=== PATIENT | male | born 1945 | race Caucasian/White ===

== ENCOUNTER 2018-02-19 15:35 | Inpatient (IN) ==
[2018-02-19 16:05] LABS: Bilirubin,Urine Negative (Negative); Blood,Urine Negative (Negative); Clarity,Urine Clear (Clear); Color,Urine Yellow (Yellow); Glucose,Urine (UA) Normal (Normal); Ketones,Urine Negative (Negative); Leukocyte Esterase,Urine Moderate (Negative); Nitrite,Urine Negative (Negative); Protein,Urine Negative (Neg-Trace); Specific Gravity,Urine 1.019 (1.010-1.025); Urobilinogen,Urine Normal (Normal)
[2018-02-19 16:13] LABS: Bacteria,Urine None Seen per hpf (None-Few); Hyaline Casts,Urine None Seen per lpf (None-Few); Squamous Epithelial Cell,Urine Moderate per lpf (None-Few)
[2018-02-19 16:36] LABS: Basophils % 0.5 %; Eosinophils # 0.6 K/mcL (0.0-0.6); Eosinophils % 6.9 %; Hematocrit 39.6 % (37.5-50.1); Hemoglobin 13.7 g/dL (12.9-16.9); Immature Granulocytes % 0.5 % (0-4); Lymphocytes # 1.7 K/mcL (0.6-4.6); Lymphocytes % 18.8 %; Mean Corpuscular HGB Conc 34.6 g/dL (31.6-35.5); Mean Corpuscular Hemoglobin 30.9 pg (28.0-33.3); Mean Corpuscular Volume 89.4 fL (83.0-100.0); Mean Platelet Volume 9.3 fL (9.4-12.4); Monocytes # 1.3 K/mcL (0.0-1.3); Monocytes % 14.9 %; Neutrophils # 5.2 K/mcL (1.6-8.9); Platelet Count 222 K/mcL (140-400); Red Blood Count 4.43 M/mcL (4.19-5.50); Segmented Neutrophils % 58.4 %
[2018-02-19 16:45] LABS: INR 1.1
[2018-02-19 16:47] LABS: Activated Partial Thrombo Time 32.9 Seconds (26.0-36.0)
[2018-02-19 16:56] LABS: Albumin 3.9 g/dL (3.5-5.7); Albumin/Globulin Ratio 1.3 (1.1-2.2); Bilirubin,Total 0.7 mg/dL (0.3-1.0); Calcium 9.4 mg/dL (8.6-10.3); Globulin 2.9 g/dL (2.4-3.5); Potassium 4.3 mEq/L (3.5-5.1); Total Protein 6.8 g/dL (6.4-8.9)
[2018-02-19] MEDS ORDERED: *HR* FentaNYL (PF) 100 MCG/2 ML VIAL IVP ONE (17:03)
[2018-02-19] MEDS ORDERED: 0.9 % Sodium Chloride 1,000 ML IVC ONE (17:04)
--- NOTE | 2018-02-19 17:08 | Emergency Department Note ---
Disposition Clinical Impression: Acute kidney injury Urolithiasis Qualifiers: Urinary calculus location: other lower urinary tract location Qualified Code(s) : N21.8 - Other lower urinary tract calculus Disposition: Admitted As Inpatient Condition: Fair Time of Disposition: 17:20 Abdominal Pain HPI - General Chief Complaint: ED Abdominal Pain Stated Complaint: Kidney stones Time Seen by Provider: 02/19/18 16:47 Source: patient, EMS Mode of arrival: EMS Limitations: no limitations Nursing Notes Reviewed: Yes Vital Signs Reviewed: Yes - History of Present Illness HPI Narrative: 72-year-old male with a history of ACS status post stent in the past on aspirin presents for evaluation of kidney stones. Patient was evaluated at the [facility] earlier today with a CT scan which showed kidney stones. Patient does have a history of kidney stones in the past which required intervention. Patient states has had a report of left sided pain. Patient did note pain radiating to his testicles. Patient notes some constipation with taking tramadol at home to help with his pain. Patient denies any nausea or vomiting. No fevers. No gross hematuria. No chest pain or shortness of breath. Pain Scale: 3 - Related Data Previous Rx's Medication Instructions Recorded Ciprofloxacin [Cipro] 500 mg PO BID 10 Days tablet 06/06/17 Allergies Allergy/AdvReac Type Severity Reaction Status Date / Time No Known Allergies Allergy Verified 02/19/18 15:51 All systems ED: reviewed and negative except as stated. Constitutional: Denies: fever Cardiovascular: Denies: chest pain Respiratory: Denies: cough, dyspnea Gastrointestinal: Reports: abdominal pain, constipation. Denies: nausea, vomiting Genitourinary: Denies: hematuria Abdominal Pain PMH - Past Medical History Medical history: Reports: cancer, coronary artery disease, DVT, hyperlipidemia, kidney stones, osteoporosis, peripheral artery disease Male Surgical History: Reports: cancer surgery, herniorrhaphy, orthopedic, other , ureteral stent Psychiatric history: Reports: depression, PTSD - Social History Smoking status: Former smoker Alcohol use: Reports: none Drug use: Reports: none Physical Exam - General Limitations: no limitations General appearance: alert, in no apparent distress - Head Head exam: atraumatic, normocephalic, normal inspection - Eye Eye exam: Present: normal appearance, PERRL, EOMI - ENT ENT exam: normal exam, normal oropharynx, mucous membranes moist - Neck Neck exam: Present: normal inspection - Chest Chest inspection: Present: normal inspection, symmetric chest wall rise - Respiratory Respiratory exam: Present: normal lung sounds bilaterally. Absent: respiratory distress - Cardiovascular Cardiovascular exam: Present: regular rate, normal rhythm. Absent: systolic murmur - Abdominal Exam Abdominal exam: Present: soft, Non-Tender. Absent: guarding, rebound - Extremities Exam Extremities exam: Present: normal inspection. Absent: pedal edema - Back Exam Back exam: Present: normal inspection. Absent: CVA tenderness (R), CVA tenderness (L) - Neurological Exam Neurological exam: Present: alert, oriented X3, CN II-XII intact - Skin Skin exam: Present: warm, dry, intact, normal color Course Course Narrative: Patient's records reviewed that showed a has a 10 mm obstructive calculus in the proximal left ureter. Patient also has multiple additional smaller stones more distally in the left ureter. Nonobstructive bilateral renal calculi. Patient also is a left lower lobe pulmonary nodule. Patient's lab work obtained prior to my evaluation. Does show the patient has any worsening kidney disease. Patient states that he wishes the stone was just removed. We will discuss the case with the on-call urologist. - Reevaluation(s) Reevaluation #1: Patient's resting comfortably. Time: 17:25 - Consultations Consultation #1: Discussed the case with urology, Dr. Benitez will evaluate the patient. Time: 17:17 Vital Signs Temperature 98.3 F 02/19/18 15:51 Pulse Rate 53 02/19/18 15:51 Respiratory Rate 20 02/19/18 15:51 Blood Pressure 151/82 02/19/18 15:51 O2 Sat by Pulse Oximetry 95 02/19/18 15:51 Temperature 98.3 F 02/19/18 15:51 Pulse Rate 53 02/19/18 15:51 Respiratory Rate 18 02/19/18 17:57 Blood Pressure 112/79 02/19/18 17:57 O2 Sat by Pulse Oximetry 95 02/19/18 15:51 Oxygen Delivery Oxygen Delivery Room Air Abdominal Pain - MDM Narrative Medical decision making narrative: Patient is a 72-year-old male with a history of renal stones in the past requiring intervention. Patient was sent in by the [facility] for urgent urologic referral. Patient states that he has been having left lower sided abdominal pain and tenderness for approximately week. Denies any nausea or vomiting. Patient states his pain is not entirely controlled and has been having issues with constipation. Patient denies any fevers. No vomiting. Patient states it he will recently completed a course of antibiotics. Patient CT report reviewed shows a 10 mm obstructive calculus in the proximal left ureter. Additional stones were noted distally. Patient also had a pulmonary nodule and was given this information as an incidental finding. Discussed the case with urology who will evaluate the patient in consult with the hospitalist. - Lab Data Lab results reviewed: Yes I reviewed the patient's lab results. Result diagrams: 02/19/18 16:16 02/19/18 16:16 Lab Results 02/19/18 02/19/18 02/19/18 Range/Units 15:55 16:16 16:16 WBC 8.8 (4.3-11.1) K/mcL RBC 4.43 (4.19-5.50) M/mcL Hgb 13.7 (12.9-16.9) g/dL Hct 39.6 (37.5-50.1) % MCV 89.4 (83.0-100.0) fL MCH 30.9 (28.0-33.3) pg MCHC 34.6 (31.6-35.5) g/dL RDW 12.0 (11.5-14.5) % Plt Count 222 (140-400) K/mcL MPV 9.3 L (9.4-12.4) fL Immature Gran % 0.5 (0-4) % Seg Neutrophils % 58.4 % Lymphocytes % 18.8 % Monocytes % 14.9 % Eosinophils % 6.9 % Basophils % 0.5 % Neutrophils # 5.2 (1.6-8.9) K/mcL Lymphocytes # 1.7 (0.6-4.6) K/mcL Monocytes # 1.3 (0.0-1.3) K/mcL Eosinophils # 0.6 (0.0-0.6) K/mcL Basophils # 0.0 (0.0-0.2) K/mcL PT 12.0 (9.4-12.1) Seconds INR 1.1 APTT 32.9 (26.0-36.0) Seconds Sodium (136-145) mEq/L Potassium (3.5-5.1) mEq/L Chloride (98-107) mEq/L Carbon Dioxide (23-29) mEq/L BUN (8-23) mg/dL Creatinine (0.70-1.30) mg/dL Est GFR ( Amer) (> 60) Est GFR (Non-Af Amer) (> 60) BUN/Creatinine Ratio (6-26) Glucose (70-105) mg/dL Calculated Osmolality (280-300) Calcium (8.6-10.3) mg/dL Total Bilirubin (0.3-1.0) mg/dL AST (13-39) Units/L ALT (7-52) Units/L Alkaline Phosphatase (34-104) Units/L Serum Total Protein (6.4-8.9) g/dL Albumin (3.5-5.7) g/dL Globulin (2.4-3.5) g/dL Albumin/Globulin Ratio (1.1-2.2) Urine Color Yellow (Yellow) Urine Clarity Clear (Clear) Urine pH 7.0 (5.0-8.0) pH Units Ur Specific [place] 1.019 (1.010-1.025) Urine Protein Negative (Neg-Trace) mg/dL Urine Glucose (UA) Normal (Normal) mg/dL Urine Ketones Negative (Negative) mg/dL Urine Blood Negative (Negative) Urine Nitrite Negative (Negative) Urine Bilirubin Negative (Negative) Urine Urobilinogen Normal (Normal) mg/dL Ur Leukocyte Esterase Moderate H (Negative) Urine Microscopic RBC 5-15 H (0-3) per hpf Urine Microscopic WBC 5-15 H (0-3) per hpf Ur Squamous Epith Cells Moderate H (None-Few) per lpf Urine Bacteria None Seen (None-Few) per hpf Hyaline Casts None Seen (None-Few) per lpf Ur Culture Indicated? YES A (NO) 02/19/18 Range/Units 16:16 WBC (4.3-11.1) K/mcL RBC (4.19-5.50) M/mcL Hgb (12.9-16.9) g/dL Hct (37.5-50.1) % MCV (83.0-100.0) fL MCH (28.0-33.3) pg MCHC (31.6-35.5) g/dL RDW (11.5-14.5) % Plt Count (140-400) K/mcL MPV (9.4-12.4) fL Immature Gran % (0-4) % Seg Neutrophils % % Lymphocytes % % Monocytes % % Eosinophils % % Basophils % % Neutrophils # (1.6-8.9) K/mcL Lymphocytes # (0.6-4.6) K/mcL Monocytes # (0.0-1.3) K/mcL Eosinophils # (0.0-0.6) K/mcL Basophils # (0.0-0.2) K/mcL PT (9.4-12.1) Seconds INR APTT (26.0-36.0) Seconds Sodium 137 (136-145) mEq/L Potassium 4.3 (3.5-5.1) mEq/L Chloride 99 (98-107) mEq/L Carbon Dioxide 33 H (23-29) mEq/L BUN 24 H (8-23) mg/dL Creatinine 1.57 H (0.70-1.30) mg/dL Est GFR ( Amer) 53 L (> 60) Est GFR (Non-Af Amer) 44 L (> 60) BUN/Creatinine Ratio 15 (6-26) Glucose 92 (70-105) mg/dL Calculated Osmolality 288 (280-300) Calcium 9.4 (8.6-10.3) mg/dL Total Bilirubin 0.7 (0.3-1.0) mg/dL AST 16 (13-39) Units/L ALT 17 (7-52) Units/L Alkaline Phosphatase 57 (34-104) Units/L Serum Total Protein 6.8 (6.4-8.9) g/dL Albumin 3.9 (3.5-5.7) g/dL Globulin 2.9 (2.4-3.5) g/dL Albumin/Globulin Ratio 1.3 (1.1-2.2) Urine Color (Yellow) Urine Clarity (Clear) Urine pH (5.0-8.0) pH Units Ur Specific [place] (1.010-1.025) Urine Protein (Neg-Trace) mg/dL Urine Glucose (UA) (Normal) mg/dL Urine Ketones (Negative) mg/dL Urine Blood (Negative) Urine Nitrite (Negative) Urine Bilirubin (Negative) Urine Urobilinogen (Normal) mg/dL Ur Leukocyte Esterase (Negative) Urine Microscopic RBC (0-3) per hpf Urine Microscopic WBC (0-3) per hpf Ur Squamous Epith Cells (None-Few) per lpf Urine Bacteria (None-Few) per hpf Hyaline Casts (None-Few) per lpf Ur Culture Indicated? (NO) - Radiology Data Radiology results reviewed: Yes I reviewed the patient's radiology results. - EKG Data EKG attestation: Yes I reviewed and interpreted this EKG. EKG shows normal: sinus rhythm Rate: bradycardia Rhythm: NSR [place]/QRS: normal T wave inversions noted in: aVR, v1 Interpretation: no acute changes, nonspecific ST-T wave changes S.B.AVictorino - Lin Situation: Demographics Background: Presenting Complaint Assessment: Vital Signs Recommendation: Barrier(s) to disposition, Recommendation based on pending studies, treatments, or consults S.B.A.Roxana Report Given to: Dr. Nicolas Ceballos Repor Time: 17:27
--- NOTE | 2018-02-19 18:04 | Emergency Department Note ---
Disposition Clinical Impression: Acute kidney injury Urolithiasis Qualifiers: Urinary calculus location: other lower urinary tract location Qualified Code(s) : N21.8 - Other lower urinary tract calculus Disposition: Admitted As Inpatient Condition: Fair General Adult HPI - General Chief complaint: ED Abdominal Pain Stated complaint: Kidney stones Time Seen by Provider: 02/19/18 16:47 Source: patient, EMS Mode of arrival: EMS Limitations: no limitations - History of Present Illness Pain Scale: 4 - Related Data Previous Rx's Medication Instructions Recorded Ciprofloxacin [Cipro] 500 mg PO BID 10 Days tablet 06/06/17 Allergies Allergy/AdvReac Type Severity Reaction Status Date / Time No Known Allergies Allergy Verified 02/19/18 15:51 Constitutional: Denies: fever Cardiovascular: Denies: chest pain Respiratory: Denies: cough, dyspnea Gastrointestinal: Reports: abdominal pain, constipation. Denies: nausea, vomiting Genitourinary: Denies: hematuria Past Medical History - Past Medical History Medical history: Reports: cancer, coronary artery disease, DVT, hyperlipidemia, kidney stones, osteoporosis, peripheral artery disease Psychiatric history: Reports: depression, PTSD - Social History Smoking Status: Former smoker Smokeless Tobacco Status: No Alcohol use: Reports: none Drug use: Reports: none Physical Exam - General Limitations: no limitations General appearance: alert, in no apparent distress Course Vital Signs Temperature 98.3 F 02/19/18 15:51 Pulse Rate 53 02/19/18 15:51 Respiratory Rate 20 02/19/18 15:51 Blood Pressure 151/82 02/19/18 15:51 O2 Sat by Pulse Oximetry 95 02/19/18 15:51 Temperature 98.3 F 02/19/18 15:51 Pulse Rate 53 02/19/18 15:51 Respiratory Rate 18 02/19/18 17:57 Blood Pressure 112/79 02/19/18 17:57 O2 Sat by Pulse Oximetry 95 02/19/18 15:51 Oxygen Delivery Oxygen Delivery Room Air Medical Decision Making - Lab Data Result diagrams: 02/19/18 16:16 02/19/18 16:16 Lab Results 02/19/18 02/19/18 02/19/18 Range/Units 15:55 16:16 16:16 WBC 8.8 (4.3-11.1) K/mcL RBC 4.43 (4.19-5.50) M/mcL Hgb 13.7 (12.9-16.9) g/dL Hct 39.6 (37.5-50.1) % MCV 89.4 (83.0-100.0) fL MCH 30.9 (28.0-33.3) pg MCHC 34.6 (31.6-35.5) g/dL RDW 12.0 (11.5-14.5) % Plt Count 222 (140-400) K/mcL MPV 9.3 L (9.4-12.4) fL Immature Gran % 0.5 (0-4) % Seg Neutrophils % 58.4 % Lymphocytes % 18.8 % Monocytes % 14.9 % Eosinophils % 6.9 % Basophils % 0.5 % Neutrophils # 5.2 (1.6-8.9) K/mcL Lymphocytes # 1.7 (0.6-4.6) K/mcL Monocytes # 1.3 (0.0-1.3) K/mcL Eosinophils # 0.6 (0.0-0.6) K/mcL Basophils # 0.0 (0.0-0.2) K/mcL PT 12.0 (9.4-12.1) Seconds INR 1.1 APTT 32.9 (26.0-36.0) Seconds Sodium (136-145) mEq/L Potassium (3.5-5.1) mEq/L Chloride (98-107) mEq/L Carbon Dioxide (23-29) mEq/L BUN (8-23) mg/dL Creatinine (0.70-1.30) mg/dL Est GFR ( Amer) (> 60) Est GFR (Non-Af Amer) (> 60) BUN/Creatinine Ratio (6-26) Glucose (70-105) mg/dL Calculated Osmolality (280-300) Calcium (8.6-10.3) mg/dL Total Bilirubin (0.3-1.0) mg/dL AST (13-39) Units/L ALT (7-52) Units/L Alkaline Phosphatase (34-104) Units/L Serum Total Protein (6.4-8.9) g/dL Albumin (3.5-5.7) g/dL Globulin (2.4-3.5) g/dL Albumin/Globulin Ratio (1.1-2.2) Urine Color Yellow (Yellow) Urine Clarity Clear (Clear) Urine pH 7.0 (5.0-8.0) pH Units Ur Specific [place] 1.019 (1.010-1.025) Urine Protein Negative (Neg-Trace) mg/dL Urine Glucose (UA) Normal (Normal) mg/dL Urine Ketones Negative (Negative) mg/dL Urine Blood Negative (Negative) Urine Nitrite Negative (Negative) Urine Bilirubin Negative (Negative) Urine Urobilinogen Normal (Normal) mg/dL Ur Leukocyte Esterase Moderate H (Negative) Urine Microscopic RBC 5-15 H (0-3) per hpf Urine Microscopic WBC 5-15 H (0-3) per hpf Ur Squamous Epith Cells Moderate H (None-Few) per lpf Urine Bacteria None Seen (None-Few) per hpf Hyaline Casts None Seen (None-Few) per lpf Ur Culture Indicated? YES A (NO) 02/19/18 Range/Units 16:16 WBC (4.3-11.1) K/mcL RBC (4.19-5.50) M/mcL Hgb (12.9-16.9) g/dL Hct (37.5-50.1) % MCV (83.0-100.0) fL MCH (28.0-33.3) pg MCHC (31.6-35.5) g/dL RDW (11.5-14.5) % Plt Count (140-400) K/mcL MPV (9.4-12.4) fL Immature Gran % (0-4) % Seg Neutrophils % % Lymphocytes % % Monocytes % % Eosinophils % % Basophils % % Neutrophils # (1.6-8.9) K/mcL Lymphocytes # (0.6-4.6) K/mcL Monocytes # (0.0-1.3) K/mcL Eosinophils # (0.0-0.6) K/mcL Basophils # (0.0-0.2) K/mcL PT (9.4-12.1) Seconds INR APTT (26.0-36.0) Seconds Sodium 137 (136-145) mEq/L Potassium 4.3 (3.5-5.1) mEq/L Chloride 99 (98-107) mEq/L Carbon Dioxide 33 H (23-29) mEq/L BUN 24 H (8-23) mg/dL Creatinine 1.57 H (0.70-1.30) mg/dL Est GFR ( Amer) 53 L (> 60) Est GFR (Non-Af Amer) 44 L (> 60) BUN/Creatinine Ratio 15 (6-26) Glucose 92 (70-105) mg/dL Calculated Osmolality 288 (280-300) Calcium 9.4 (8.6-10.3) mg/dL Total Bilirubin 0.7 (0.3-1.0) mg/dL AST 16 (13-39) Units/L ALT 17 (7-52) Units/L Alkaline Phosphatase 57 (34-104) Units/L Serum Total Protein 6.8 (6.4-8.9) g/dL Albumin 3.9 (3.5-5.7) g/dL Globulin 2.9 (2.4-3.5) g/dL Albumin/Globulin Ratio 1.3 (1.1-2.2) Urine Color (Yellow) Urine Clarity (Clear) Urine pH (5.0-8.0) pH Units Ur Specific [place] (1.010-1.025) Urine Protein (Neg-Trace) mg/dL Urine Glucose (UA) (Normal) mg/dL Urine Ketones (Negative) mg/dL Urine Blood (Negative) Urine Nitrite (Negative) Urine Bilirubin (Negative) Urine Urobilinogen (Normal) mg/dL Ur Leukocyte Esterase (Negative) Urine Microscopic RBC (0-3) per hpf Urine Microscopic WBC (0-3) per hpf Ur Squamous Epith Cells (None-Few) per lpf Urine Bacteria (None-Few) per hpf Hyaline Casts (None-Few) per lpf Ur Culture Indicated? (NO) Attestation Statement - Attestation Attestation: I examined this patient and my medical decision-making was reviewed with the Resident Physician. I agree with the documented findings, disposition and treatment plan as described except to the extent set forth below. Patient to the ED with a kidney stone. Transfer from the [facility] after he had a CT was had a 10 mm obstructing stone. On my examination he is comfortable after pain meds. Abdomen soft and well-appearing. Plan. Renal function is up a little from baseline. Discussed with urology and will admit to hospitalist.
[2018-02-19] MEDS ORDERED: Naloxone 0.4 MG/ML INJ IVP PRN (18:33)
[2018-02-19] MEDS ORDERED: traMADol 50 MG TABLET PO PRN (18:33)
--- NOTE | 2018-02-19 18:43 | Internal Med History&Physical ---
Date of Encounter: 02/19/18 Time of Encounter: 18:40 Internal Medicine - H&P: HPI Chief complaint: Left-sided flank pain History of present illness: Mr. Gracia is a 72 year old male with a history of CAD status post stent in 2013 on dual antiplatelet therapy, hypertension who presents with renal colic related to left-sided renal stone complicated by hydronephrosis and [place]OD[place]. Patient was seen in the [facility] 2 weeks ago with the onset of symptoms complaining of left-sided testicular pain initially that radiated upwards to the left flank. Weight 4-5 out of 10. Sharp in quality. At that time he was given tramadol when necessary for pain and was also given a ten-day course of oral antibiotics thought to be Cipro. He denies fevers or chills. Due to persistent symptoms that did not improve, he presented to the [facility] again today where a CT abdomen pelvis was performed demonstrating a left severe to moderate hydronephrosis associated with a 10 mm stone in the ureteral-pelvic junction with additional 2-3 mm stone in the lower pole of the left kidney. There was also a 3 mm non-obstructive right renal stone EKG personally reviewed with rate of 48, sinus bradycardia Past Med Surg Social Fam HX - Past Medical History Medical history: cancer, coronary artery disease, DVT, hyperlipidemia, kidney stones, osteoporosis, peripheral artery disease Psychiatric history: depression, PTSD - Past Surgical History Surgical History: angioplasty/stent (In 2013 stent placement) - Social History Smoking Status: Former smoker Smokeless Tobacco Status: No Alcohol use: none Drug use: none Internal Medicine - H&P: Meds 3 Allergy/AdvReac Type Severity Reaction Status Date / Time No Known Allergies Allergy Verified 02/19/18 15:51 All Systems PM: A 10-system review of systems was performed and is negative for pertinent findings except as documented above in the HPI. Review of systems: ROS 14 point review of systems reviewed as best as possible given presentation. Pertinent positive or negative as per HPI or otherwise reviewed as negative - Constitutional Vitals: Temp Pulse Resp BP Pulse Ox 98.3 F 53 18 112/79 95 02/19/18 15:51 02/19/18 15:51 02/19/18 17:57 02/19/18 17:57 02/19/18 15:51 Exam: General - AAO x 3 Psych - Appropriate affect/speech. No agitation Eyes - MEE. Eye lids intact. No scleral icterus Neuro - No gross peripheral or central neuro deficits on inspection Heart - Sinus. RRR. S1 and S2 present. No added HS/murmurs appreciated. No elevated JVD appreciated. Lung - Adequate air entry b/l, No crackles/wheezes appreciated GI - Soft, non-tender. No hepatosplenomegaly/ascites. BS+ - left-sided flank pain, radiating upwards and downwards. No suprapubic pain Skin - Intact. No rash/petechiae/ecchymosis. Warm extremities Internal Med - H&P Results - Labs CBC & Chem 7: 02/19/18 16:16 02/19/18 16:16 - Assessment and plan (1) Urolithiasis Current Visit: Yes Status: Acute Assessment and plan: Renal stone complicated by renal colic Discussed with ED for have reviewed the case with Dr. Benitez urology Nothing by mouth after midnight pending urology evaluation IV fluids, Flomax Tramadol, IV fentanyl when necessary for pain control IV Zofran for nausea control We sent a urinalysis but suspect that this could be partially treated given prior to antibiotics - no evidence of UTI sepsis at current Qualifiers: Urinary calculus location: kidney Qualified Code(s): N20.0 - Calculus of kidney (2) Acute kidney injury Current Visit: Yes Status: Acute Assessment and plan: Related to hydronephrosis and kidney stone. Will require definitive treatment for kidney stone Trend creatinine (3) CAD (coronary artery disease) Current Visit: Yes Status: Acute Assessment and plan: Status post stent in 2012 We will hold dual antiplatelet therapy pending urology evaluation for possible procedure Qualifiers: Coronary Disease-Associated Artery/Lesion type: [place] artery Associated angina: without angina Qualified Code(s): I25.10 - Atherosclerotic heart disease of [place] coronary artery without angina pectoris - Time Spent With Patient Total time spent is greater than 50% in coordination of care (as documented) at patient's floor/unit and/or counseling patient:
[2018-02-19] MEDS ORDERED: Ondansetron 4 MG/2 ML VIAL IVP PRN (18:50)
[2018-02-19] MEDS: 0.9 % Sodium Chloride 1,000 ML IVC SCH (20:30)
[2018-02-19] MEDS: *HR* FentaNYL (PF) 100 MCG/2 ML VIAL IVP PRN (22:00)
[2018-02-20 05:39] LABS: Basophils % 0.5 %; Eosinophils # 0.6 K/mcL (0.0-0.6); Eosinophils % 7.8 %; Hematocrit 38.6 % (37.5-50.1); Hemoglobin 13.3 g/dL (12.9-16.9); Immature Granulocytes % 0.4 % (0-4); Lymphocytes # 1.3 K/mcL (0.6-4.6); Lymphocytes % 16.4 %; Mean Corpuscular HGB Conc 34.5 g/dL (31.6-35.5); Mean Corpuscular Hemoglobin 31.1 pg (28.0-33.3); Mean Corpuscular Volume 90.2 fL (83.0-100.0); Mean Platelet Volume 9.3 fL (9.4-12.4); Monocytes % 12.9 %; Platelet Count 211 K/mcL (140-400); Red Blood Count 4.28 M/mcL (4.19-5.50)
[2018-02-20 05:59] LABS: BUN/Creatinine Ratio 17 (6-26); Blood Urea Nitrogen 22 mg/dL (8-23); Calcium 8.5 mg/dL (8.6-10.3); Carbon Dioxide 29 mEq/L (23-29); Chloride 104 mEq/L (98-107); Glucose 91 mg/dL (70-105); Osmolality,Calculated 289 (280-300); Potassium 4.5 mEq/L (3.5-5.1); Sodium 138 mEq/L (136-145); eGFR For African Americans > 60 (> 60); eGFR For Non-African Americans 57 (> 60)
[2018-02-20] MEDS: 0.9 % Sodium Chloride 1,000 ML IVC SCH (06:09)
[2018-02-20] MEDS: *HR* FentaNYL (PF) 100 MCG/2 ML VIAL IVP PRN (06:12)
--- NOTE | 2018-02-20 09:27 | Internal Med Progress Note ---
<Snehal Cerrato - Last Filed: 02/20/18 10:58> Date of Encounter: 02/20/18 Time of Encounter: 09:25 - Assessment and plan (1) Urolithiasis Current Visit: Yes Status: Acute Assessment and plan: 10mm Kidney stone in left ureteral pelvic junction with severe to moderate hydronephrosis. 2-3mm stone and lower pole of left kidney demonstrated by abdominal CT at the [place] then transferred to [facility]. He reported he had left testicular pain that started 2 weeks ago for which he went to [place] and they gave him ciprofloxacin for what they believed to be a UTI. The pain progressed and radiated across his abdomen to his left side of his back. His PCP ordered ultrasound which demonstrated kidney stones. He was told to go to [place] and had an abdominal CT that demonstrated the kidney stones and then was transferred to [facility]. Urinalysis demonstrated leukocyte esterase positive however patient denies dysuria. Will not start antibiotics due to unlikely UTI and he already received ciprofloxacin outpatient when the pain started 2 weeks ago. -Urology has already been consulted and is planning to take patient to OR today at 2 PM -IV fluids, Flomax -NPO -Toradol and IV fentanyl when necessary for pain control -IV Zofran for nausea control -urine culture pending Qualifiers: Urinary calculus location: kidney Qualified Code(s): N20.0 - Calculus of kidney (2) Acute kidney injury Current Visit: Yes Status: Acute Assessment and plan: Improving. Likely prerenal secondary hydronephrosis and kidney stone. Creatinine 1.26 (1.57) Urology taking patient to OR today for kidney stone extraction -Continue IVF -Trend creatinine (3) CAD (coronary artery disease) Current Visit: Yes Status: Acute Assessment and plan: History of known CAD with one stent in 2012 -continue home coreg, Lipitor, imdur, aspirin after the procedure in the OR Qualifiers: Coronary Disease-Associated Artery/Lesion type: andreafski artery Associated angina: without angina Qualified Code(s): I25.10 - Atherosclerotic heart disease of andreafski coronary artery without angina pectoris (4) DVT prophylaxis Current Visit: Yes Status: Acute Assessment and plan: EPCD - Time Spent With Patient Total time spent is greater than 50% in coordination of care (as documented) at patient's floor/unit and/or counseling patient: - Subjective Interval history: 72M PMH CAD with stent, skin cancer, DVT, history of kidney stones, HLD [facility] in left UPJ demonstrated by abdominal CT. Upon my examination he is alert and oriented times 3 and no acute distress. He reports he does have mild to moderate pain on his left side. He denies fever, chills, nausea, vomiting. He was told by urology that he would be going to OR around 2 PM today. - Constitutional Vitals: Temp Pulse Resp BP Pulse Ox 98.8 F 54 16 145/61 93 02/20/18 07:20 02/20/18 07:20 02/20/18 07:20 02/20/18 07:20 02/20/18 07:20 Exam: Gen.: Vitals noted. No acute distress. AAOx3 HEENT: oropharynx clear, Normocephalic, atraumatic Cardiac: RRR, no murmur, +S1/S2 Pulmonary: CTA bilaterally, no wheezes, rales or rhonchi, equal chest expansion Abdomen: soft, left lower quadrant tender, Bowel sounds noted, no guarding Back: left CVA tenderness MSK: ROM intact, no joint swelling noted Extremities: no BLE edema, nontender calf, no cyanosis or clubbing Neuro: A&Ox3, moves all extremities, no focal deficits Psych: Appropriate mood and behavior Internal Medicine: Result - Labs CBC & Chem 7: 02/20/18 04:55 02/20/18 04:55 Labs: Short CBC 02/20/18 Range/Units 04:55 WBC 8.0 (4.3-11.1) K/mcL Hgb 13.3 (12.9-16.9) g/dL Hct 38.6 (37.5-50.1) % Plt Count 211 (140-400) K/mcL Neutrophils # 5.0 (1.6-8.9) K/mcL BMP 02/20/18 04:55 Sodium 138 Potassium 4.5 Chloride 104 Carbon Dioxide 29 BUN 22 Creatinine 1.26 Glucose 91 Calcium 8.5 L - ABG Interpretation ABG results: PT/INR, D-dimer PT 12.0 Seconds (9.4-12.1) 02/19/18 16:16 - VTE Documentation of Mechanical Device: Intermittent pneumatic compression device Consult Discharge Plan - Plan Additional Instructions: Please follow-up with your primary care physician at the [place] as well as Dr. Benitez for continued management of your kidney stone. Be sure to drink plenty of fluids and take all medications as prescribed. Referrals: Anatoly Benitez MD [Partnered Physician] - <Tenzin Costa Betsy - Last Filed: 02/20/18 17:54> Date of Encounter: 02/20/18 - Assessment and plan (1) Urolithiasis Current Visit: Yes Status: Acute Qualifiers: Urinary calculus location: kidney Qualified Code(s): N20.0 - Calculus of kidney (2) Acute kidney injury Current Visit: Yes Status: Acute (3) CAD (coronary artery disease) Current Visit: Yes Status: Chronic Qualifiers: Coronary Disease-Associated Artery/Lesion type: andreafski artery Associated angina: without angina Qualified Code(s): I25.10 - Atherosclerotic heart disease of andreafski coronary artery without angina pectoris (4) DVT prophylaxis Current Visit: Yes Status: Acute - Time Spent With Patient Total time spent is greater than 50% in coordination of care (as documented) at patient's floor/unit and/or counseling patient: - Constitutional Vitals: Temp Pulse Resp BP Pulse Ox 98.3 F 52 16 125/61 95 02/20/18 17:42 02/20/18 17:42 02/20/18 17:42 02/20/18 17:42 02/20/18 17:42 Internal Medicine: Result - Labs CBC & Chem 7: 02/20/18 04:55 02/20/18 04:55 Labs: Short CBC 02/20/18 Range/Units 04:55 WBC 8.0 (4.3-11.1) K/mcL Hgb 13.3 (12.9-16.9) g/dL Hct 38.6 (37.5-50.1) % Plt Count 211 (140-400) K/mcL Neutrophils # 5.0 (1.6-8.9) K/mcL BMP 02/20/18 04:55 Sodium 138 Potassium 4.5 Chloride 104 Carbon Dioxide 29 BUN 22 Creatinine 1.26 Glucose 91 Calcium 8.5 L - ABG Interpretation ABG results: PT/INR, D-dimer PT 12.0 Seconds (9.4-12.1) 02/19/18 16:16 - Impressions Impressions Fluoroscopy 02/20/18 00:00 IMPRESSION: Intraprocedural fluoroscopic spot images as above. See separate procedure report for more information. D/ / Robert Sierra MD / Robert Sierra MD Interpreting Provider: Robert Sierra MD X-Ray 02/20/18 00:00 IMPRESSION: Intraprocedural fluoroscopic spot images as above. See separate procedure report for more information. D/ / Robert Sierra MD / Robert Sierra MD Interpreting Provider: Robert Sierra MD - Attending Attestation Please see discharge summary of this date.
--- NOTE | 2018-02-20 09:34 | Urology - Consult Note ---
Date of Encounter: 02/20/18 Time of Encounter: 09:28 - Assessment and Plan (1) Left ureteral calculus Current Visit: Yes Status: Acute Assessment and plan: Patient has a large volume of stones within his left ureter. Plan on left ureteroscopic stone extraction today in the operating room. All risks benefits and alternatives were discussed with the patient and and they voiced understanding. Urology CN:HPI Consult date: 02/20/18 Reason for consult Urology: Other (left ureteral stones) Requesting physician: Walker Mariscal History of present illness: Robert is a 72-year-old male with a history of kidney stones. Patient presented to the emergency Department secondary to left-sided flank pain after undergoing a CT scan at the [facility]. The CT scan revealed multiple left ureteral stones with largest at the proximal left UPJ. Patient's pain is currently controlled. No nausea or vomiting. No fevers. He did have a slightly elevated serum creatinine upon admission to the hospital. Past Med Surg Social Fam HX - Past Medical History Medical history: cancer, coronary artery disease, DVT, hyperlipidemia, kidney stones, osteoporosis, peripheral artery disease Psychiatric history: depression, PTSD - Past Surgical History Surgical History: angioplasty/stent (In 2013 stent placement) - Social History Smoking Status: Former smoker Smokeless Tobacco Status: No Alcohol use: none Drug use: none Medications and Allergies Albuterol Sulfate [Albuterol Inhaler] 2 puff IH Q4H PRN 02/19/18 [History] Ascorbic Acid [Vitamin C with Keyona Hips] 500 mg PO DAILY 02/19/18 [History] Aspirin [Lo-Dose Aspirin EC] 81 mg PO DAILY 02/19/18 [History] Atorvastatin [Lipitor] 40 mg PO HS 02/19/18 [History] BuPROPion SR (12 HR) [Wellbutrin SR] 150 mg PO DAILY 02/19/18 [History] Carvedilol 3.125 mg PO BID 02/19/18 [History] Gabapentin [Neurontin] 600 mg PO TID 02/19/18 [History] Gluc 2Kcl/Chondr/Santy Hy/Hy AC [Glucosamine & Chondroitin Cap] 1 cap PO DAILY [History] Isosorbide MONOnitrate (24 HR) [Imdur] 30 mg PO DAILY 02/19/18 [History] Sertraline [Zoloft] 200 mg PO DAILY 02/19/18 [History] Tamsulosin [Flomax] 0.4 mg PO DAILY 02/19/18 [History] Tramadol HCl [Ultram] 50 mg PO TID PRN 02/19/18 [History] hydroCHLOROthiazide [Hydrochlorothiazide] 25 mg PO DAILY 02/19/18 [History] 3 Allergy/AdvReac Type Severity Reaction Status Date / Time No Known Allergies Allergy Verified 02/19/18 15:51 Review of Systems - Constitutional no chills, no fever(s) - EENT Nose, mouth and throat: no dizziness - Cardiovascular no dyspnea - Respiratory no cough - Gastrointestinal no abdominal pain - Musculoskeletal back pain - Integumentary no erythema Exam Initial Vital Signs Temp Pulse Resp BP Pulse Ox 98.3 F 53 20 151/82 95 02/19/18 15:51 02/19/18 15:51 02/19/18 15:51 02/19/18 15:51 02/19/18 15:51 General/Neuological: alert and oriented x 3 Eyes: normal pupils, non-icteric Neck: no lymphadenopathy noted, supple to touch Cardiovascular: RRR, no murmurs Respiratory: normal respiratory effort, clear bilaterally ABD: soft, nontender, no masses palpated, good bowel sounds Back: no pain on percussion bilaterally : normal phallus, normal scrotum, testicles and epididymides normal, urethral meatus normal. Rectal: smooth prostate, no nodules Skin: no rashes noted Musculoskeletal: normal gait, FROMx4 Urology Results - Labs 02/20/18 04:55 02/20/18 04:55 Abnormal lab results MPV 9.3 fL (9.4-12.4) L 02/20/18 04:55 Est GFR (Non-Af Amer) 57 (> 60) L 02/20/18 04:55 Calcium 8.5 mg/dL (8.6-10.3) L 02/20/18 04:55 Ur Leukocyte Esterase Moderate (Negative) H 02/19/18 15:55 Urine Microscopic RBC 5-15 per hpf (0-3) H 02/19/18 15:55 Urine Microscopic WBC 5-15 per hpf (0-3) H 02/19/18 15:55 Ur Squamous Epith Cells Moderate per lpf (None-Few) H 02/19/18 15:55 Ur Culture Indicated? YES (NO) A 02/19/18 15:55 Diabetes panel 02/20/18 Range/Units 04:55 Sodium 138 (136-145) mEq/L Potassium 4.5 (3.5-5.1) mEq/L Chloride 104 (98-107) mEq/L Carbon Dioxide 29 (23-29) mEq/L BUN 22 (8-23) mg/dL Creatinine 1.26 (0.70-1.30) mg/dL Glucose 91 (70-105) mg/dL Calcium 8.5 L (8.6-10.3) mg/dL Calcium panel 02/20/18 Range/Units 04:55 Calcium 8.5 L (8.6-10.3) mg/dL Pituitary panel 02/20/18 Range/Units 04:55 Sodium 138 (136-145) mEq/L Potassium 4.5 (3.5-5.1) mEq/L Chloride 104 (98-107) mEq/L Carbon Dioxide 29 (23-29) mEq/L BUN 22 (8-23) mg/dL Creatinine 1.26 (0.70-1.30) mg/dL Glucose 91 (70-105) mg/dL Calcium 8.5 L (8.6-10.3) mg/dL Adrenal panel 02/20/18 Range/Units 04:55 Sodium 138 (136-145) mEq/L Potassium 4.5 (3.5-5.1) mEq/L Chloride 104 (98-107) mEq/L Carbon Dioxide 29 (23-29) mEq/L BUN 22 (8-23) mg/dL Creatinine 1.26 (0.70-1.30) mg/dL Glucose 91 (70-105) mg/dL Calcium 8.5 L (8.6-10.3) mg/dL All other labs normal. - Imaging CT scan - abdomen: image reviewed CT scan - pelvis: image reviewed Consult Discharge Plan - Plan Referrals: Anatoly Benitez MD [Partnered Physician] -
--- NOTE | 2018-02-20 12:28 | Electrocardiograph Report ---
[address] [address] Test Date: 2018-02-19 Pat Name: Robert Gracia Department: 103 Room: 3A Gender: M Records Administrator: AJAY : 1945 Requested By: Walker Mariscal Order Number: [id number] Reading MD: Amilcar Slade Measurements Intervals [place] Rate: 48 P: -4 WV: 192 QRS: 45 QRSD: 109 T: 63 QT: 423 QTc: 391 Interpretive Statements SINUS BRADYCARDIA Electronically Signed On 02-20-2018 12:26:40 EDT by Amilcar Slade
[2018-02-20] MEDS ORDERED: *HR* Midazolam HCl 2 MG/2 ML VIAL ONE (13:40)
[2018-02-20] MEDS ORDERED: *HR* FentaNYL (PF) 100 MCG/2 ML VIAL ONE (13:40)
[2018-02-20] MEDS ORDERED: *HR* Propofol 200 MG/20 ML VIAL IVP ONE (13:40)
--- NOTE | 2018-02-20 13:42 | Anesthesia Evaluation PreOp ---
Date of Encounter: 02/20/18 Time of Encounter: 13:49 - Past History Planned Operation: Left USE Cardiac History: HTN, Cardiac Stent (2012), Other (Good excercise tolerance) REED FIXER History: Other (Depression, PTSD) Other Medical History: Renal (CRI) Anesthesia History: No Prior Anesthetic Complications, Past Anesthesia Alcohol Use: none Drug use: none Medications and Allergies Albuterol Sulfate [Albuterol Inhaler] 2 puff IH Q4H PRN 02/19/18 [History] Ascorbic Acid [Vitamin C with Keyona Hips] 500 mg PO DAILY 02/19/18 [History] Aspirin [Lo-Dose Aspirin EC] 81 mg PO DAILY 02/19/18 [History] Atorvastatin [Lipitor] 40 mg PO HS 02/19/18 [History] BuPROPion SR (12 HR) [Wellbutrin SR] 150 mg PO DAILY 02/19/18 [History] Carvedilol 3.125 mg PO BID 02/19/18 [History] Gabapentin [Neurontin] 600 mg PO TID 02/19/18 [History] Gluc 2Kcl/Chondr/Santy Hy/Hy AC [Glucosamine & Chondroitin Cap] 1 cap PO DAILY [History] Isosorbide MONOnitrate (24 HR) [Imdur] 30 mg PO DAILY 02/19/18 [History] Sertraline [Zoloft] 200 mg PO DAILY 02/19/18 [History] Tamsulosin [Flomax] 0.4 mg PO DAILY 02/19/18 [History] Tramadol HCl [Ultram] 50 mg PO TID PRN 02/19/18 [History] hydroCHLOROthiazide [Hydrochlorothiazide] 25 mg PO DAILY 02/19/18 [History] 3 Allergy/AdvReac Type Severity Reaction Status Date / Time No Known Allergies Allergy Verified 02/19/18 15:51 - Meds/Allergy Pre-op Review Medications Reviewed: Yes Allergies Reviewed: Yes Beta Blockers on Current Med List: Yes If Beta Blockers taken, Date/Time (Last Dose taken): 1252 Anesthesia Results - Labs 02/20/18 04:55 02/20/18 04:55 - Imaging EKG: report reviewed (SINUS BRADYCARDIA) Anesthesia Exam O2 Sat Height 1.78 m Weight 118.5 kg Weight 118.478 kg O2 Sat by Pulse Oximetry 93 O2 Sat by Pulse Oximetry 93 O2 Sat by Pulse Oximetry 94 O2 Sat by Pulse Oximetry 94 O2 Sat by Pulse Oximetry 97 O2 Sat by Pulse Oximetry 97 O2 Sat by Pulse Oximetry 95 Vital Signs/O2 Sat/Glucose, Most Recent Temp Pulse Resp BP Pulse Ox 98.4 F 51 16 157/74 93 02/20/18 11:13 02/20/18 11:13 02/20/18 11:13 02/20/18 11:13 02/20/18 11:13 Blood Glucose* 91 - HEENT Mallampati: I Teeth: Missing Oral Opening: Greater than 3 - REED FIXER LOC: Oriented - Cardiac Rhythm: Regular - Pulmonary Breath Sounds: bilateral Clear Anesthesia Assess/Plan ASA Score: 2 Modified Basilio Scale for Level of Consciousness: Cooperative, oriented, and tranquil Anesthetic Plan: General Monitoring Plan: Standard Monitors Recovery Plan: PACU Anes Supervising Prov Stmt: Patient informed and consented. Risks, benefits, and alternatives discussed. Patient wishes to proceed.
[2018-02-20] MEDS ORDERED: *HR* OxyCODONE Immed Rel 5 MG TABLET PO PRN (13:45)
[2018-02-20] MEDS ORDERED: *HR* FentaNYL (PF) 100 MCG/2 ML VIAL IVP PRN ×2 (13:45→15:29)
--- NOTE | 2018-02-20 14:41 | Operative Note ---
Date of procedure: 02/20/18 Pre-op diagnosis: left ureteral stones Post-op diagnosis: same Procedure: Left ureteroscopic laser lithotripsy of stone, left ureteroscopic basket retrieval stone fragment, left 6 x 26 cm ureteral stent placement Anesthesia: GETA Surgeon: Anatoly Benitez Was there an export sales assistant present: No Estimated blood loss (cc): 0 Specimen: Left ureteral stone Condition: stable Disposition: PACU Procedure in Detail: All risks benefits and alternatives were discussed with the patient in holding area. The consent was reviewed. Patient understood and was willing to proceed with the scheduled procedure. Patient was prepped and draped in normal sterile fashion. Timeout procedure performed. I then inserted the semirigid ureteroscope into the patient's urethra and advanced into the bladder. I cannulated the left ureteral orifice and encountered a distal 3-4 mm stone. I then used a basket device to remove the stone in its entirety. I then placed the scope back into the left ureter and up to where I encountered 2 separate mid ureteral stones. I used the holmium laser to fragment the stones. All stone fragments were then removed using a nitinol basket. At this point I then encountered a larger left UPJ stone but was unable to advance the scope beyond the narrow area just distal to the stone. I then proceeded to place a sensor wire into the left kidney and placed a 6 x 26 cm stent with good curl seen in the left kidney and in the bladder. The bladder was drained and the procedure was ended. Patient okay to discharge from urology standpoint. I will schedule the patient a return to the operating room in 2-3 weeks for left ureteroscopic stone extraction.
[2018-02-20] MEDS ORDERED: Ketorolac 30 MG/ML VIAL ONE (14:42)
[2018-02-20] MEDS ORDERED: Dexamethasone 4 MG/ML VIAL ONE (14:42)
[2018-02-20] MEDS ORDERED: Ondansetron 4 MG/2 ML VIAL ONE (14:42)
--- NOTE | 2018-02-20 15:09 | Anesthesia Evaluation Post Op ---
Date of Encounter: 02/20/18 Time of Encounter: 15:08 - Vital Signs Vital Signs: Vital Signs/O2 Sat, Most Current Temp Pulse Resp BP Pulse Ox 97.8 F 57 14 148/80 99 02/20/18 14:44 02/20/18 15:04 02/20/18 15:04 02/20/18 15:04 02/20/18 15:04 - Lungs Lungs: Clear Ascult./Percussion - Airway Airway: Non-obstructed - Cardiovascular Regular Rate - Mental Status Mental Status: Alert & Oriented, Answers Appropriately - Pain Pain Scale: 0 Pain Scale used: Numeric (1 - 10) - Nausea Vomiting Nausea Vomiting: Not Present - Hydration Hydration: Ice chips, Palmer catheter - Discharge PostOp Status: Transfer Patient to floor
[2018-02-20] MEDS ORDERED: traMADol 50 MG TABLET PO PRN (15:29)
[2018-02-20] MEDS ORDERED: Ondansetron 4 MG/2 ML VIAL IVP PRN (15:29)
[2018-02-20] MEDS ORDERED: Naloxone 0.4 MG/ML INJ IVP PRN (15:29)
--- NOTE | 2018-02-20 17:16 | Discharge Summary ---
<Ranjeet Baldwin - Last Filed: 02/20/18 17:14> - NOTES TO OUTPATIENT PROVIDER Notes to Outpatient Provider: Patient presented with left-sided kidney stone and extraction was attempted however was unable to be extracted. Lithotripsy performed. Has an outpatient follow-up with urology in 2-3 weeks for removal of remainder of stone. Date of Encounter: 02/20/18 Time of Encounter: 17:14 - Discharge Diagnosis (1) Urolithiasis Priority: Primary Status: Acute Assessment and Plan: 10mm Kidney stone in left ureteral pelvic junction with severe to moderate hydronephrosis. 2-3mm stone and lower pole of left kidney demonstrated by abdominal CT at the [facility] then transferred to [facility]. Status post laser lithotripsy, ureteroscopic basket retrieval, ureteral stent placement Qualifiers: Urinary calculus location: kidney Qualified Code(s): N20.0 - Calculus of kidney (2) Acute kidney injury Priority: Secondary Status: Acute Assessment and Plan: Improving. (3) CAD (coronary artery disease) Priority: Secondary Status: Chronic Qualifiers: Coronary Disease-Associated Artery/Lesion type: upper [place] artery Associated angina: without angina Qualified Code(s): I25.10 - Atherosclerotic heart disease of [place] coronary artery without angina pectoris (4) DVT prophylaxis Priority: Secondary Status: Acute Hospital course: Mr. Gracia is a 72 year old male presented to the emergency department for evaluation of kidney stones. He states that he was evaluated at the [facility] earlier on day of arrival and had a CT scan which showed kidney stones. He has had this in the past which have required intervention. He did also complain of pain radiating to his testicles. He has been taking tramadol with relief of his pain. Vital signs on presentation significant for mild bradycardia at 53, respiratory rate 20, BP 151/82. Labs were significant for a mild acute kidney injury with a creatinine of 1.57. He was admitted to medicine service with urology consults for further evaluation and management of a left-sided kidney stone measuring [address] scan. During course hospital stay, patient's pain did gradually improved. He did undergo a left-sided ureteroscopic laser lithotripsy, left ureteroscopic basket retrieval of stone fragment, left ureteral stent placement by urology. He did have one 3-4 mm stone extracted however there was an additional 10 mm stone in the UPJ which was unable to be extracted due to size. At which point a sensor wire was advanced and a ureteral stent was placed. He was advised to follow up with urology in 2-3 weeks for left uteroscopic stone extraction. He will be discharged home in stable condition with resolution of his symptoms with Flomax , his home tramadol dosage. We did discuss the option of discharging today or tomorrow and patient stated that he was work on full leaving tonight with close follow-up. All questions were answered. He was instructed to return to emergency department with any worsening of symptoms and to drink plenty of fluids. He is medically stable for discharge at this time. Discharge discussed with: patient, family - Time Spent with Patient Total time spent providing and/or coordinating discharge services: - Discharge Medications Home Medications: Albuterol Sulfate [Albuterol Inhaler] 2 puff IH Q4H PRN 02/19/18 [History] Ascorbic Acid [Vitamin C with [place] Hips] 500 mg PO DAILY 02/19/18 [History] Aspirin [Lo-Dose Aspirin EC] 81 mg PO DAILY 02/19/18 [History] Atorvastatin [Lipitor] 40 mg PO HS 02/19/18 [History] BuPROPion SR (12 HR) [Wellbutrin SR] 150 mg PO DAILY 02/19/18 [History] Carvedilol 3.125 mg PO BID 02/19/18 [History] Gabapentin [Neurontin] 600 mg PO TID 02/19/18 [History] Gluc 2Kcl/Chondr/Santy Hy/Hy AC [Glucosamine & Chondroitin Cap] 1 cap PO DAILY [History] Isosorbide MONOnitrate (24 HR) [Imdur] 30 mg PO DAILY 02/19/18 [History] Sertraline [Zoloft] 200 mg PO DAILY 02/19/18 [History] Tamsulosin [Flomax] 0.4 mg PO DAILY 02/19/18 [History] Tramadol HCl [Ultram] 50 mg PO TID PRN 02/19/18 [History] hydroCHLOROthiazide [Hydrochlorothiazide] 25 mg PO DAILY 02/19/18 [History] Allergies/Adverse Reactions: 3 Allergy/AdvReac Type Severity Reaction Status Date / Time No Known Allergies Allergy Verified 02/19/18 15:51 Date of admission: 02/19/18 17:32 Primary care physician: [facility]CP [facility] Discharging clinician: Ranjeet Baldwin Anticipated date of discharge: 02/20/18 - Constitutional Vitals: Temp Pulse Resp BP Pulse Ox 98.1 F 52 16 129/69 95 02/20/18 16:30 02/20/18 16:30 02/20/18 16:30 02/20/18 16:30 02/20/18 16:30 Exam: Gen.: Vitals noted. No acute distress. AAOx3 HEENT: oropharynx clear, Normocephalic, atraumatic Cardiac: RRR, no murmur, +S1/S2 Pulmonary: CTA bilaterally, no wheezes, rales or rhonchi, equal chest expansion Abdomen: soft, left lower quadrant tender, Bowel sounds noted, no guarding Back: left CVA tenderness, states improvement MSK: ROM intact, no joint swelling noted Extremities: no BLE edema, nontender calf, no cyanosis or clubbing Neuro: A&Ox3, moves all extremities, no focal deficits Psych: Appropriate mood and behavior - Patient Status Disposition: Home, Self-Care Condition: Fair Functional capacity at discharge: independent ambulation Overall status at discharge: patient is progressing back to baseline - Discharge Instructions Follow Up With: Anatoly Benitez MD [Partnered Physician] - Additional Instructions: Please follow-up with your primary care physician at the [facility] as well as Dr. Benitez for continued management of your kidney stone. Be sure to drink plenty of fluids and take all medications as prescribed. - Diet and Activity Activity: increase activity as tolerated Diet: advance to your usual diet - VTE Documentation of Mechanical Device: Intermittent pneumatic compression device <Tenzin Costa - Last Filed: 02/20/18 18:09> Date of Encounter: 02/20/18 - Discharge Diagnosis (1) Left ureteral calculus Priority: Primary Status: Acute (2) Urolithiasis Status: Acute Qualifiers: Urinary calculus location: kidney Qualified Code(s): N20.0 - Calculus of kidney (3) Acute kidney injury Status: Acute (4) CAD (coronary artery disease) Status: Chronic Qualifiers: Coronary Disease-Associated Artery/Lesion type: [place] artery Associated angina: without angina Qualified Code(s): I25.10 - Atherosclerotic heart disease of [place] coronary artery without angina pectoris (5) DVT prophylaxis Status: Acute Hospital course: Mr. Gracia is a 72 year old male - Time Spent with Patient Total time spent providing and/or coordinating discharge services: 28min Date of admission: 02/19/18 17:32 Primary care physician: [facility]CP [facility] - Constitutional Vitals: Temp Pulse Resp BP Pulse Ox 98.3 F 52 16 125/61 95 02/20/18 17:42 02/20/18 17:42 02/20/18 17:42 02/20/18 17:42 02/20/18 17:42 - Attending Attestation I examined this patient and my medical decision-making was reviewed with the Resident Physician on 02/20/18. I agree with the documented findings, disposition and treatment plan as described except to the extent set forth below. Mr Gracia has been admitted for acute obstructive uropathy due to stone. He is s/p stent today. He is feeling OK and ready for discharge home. Exam alert Comfortable Mucus membranes dry Heart not tachy No wheeze Abd soft Plan D/C home today
[2018-02-20 19:26] VITALS: BP 118/67
== END 2018-02-20 18:50 | disposition home or self-care (01) | DRG 669 ==
LOC: EMEROO 15:35 → SUATTDRO 17:32 → 3ANU 17:32
PROVIDERS: ADMIT Internal Medicine Hematology & Oncology; ATTEND Internal Medicine